=== PATIENT | male | born 1945 | race Caucasian/White ===

== ENCOUNTER 2020-11-06 05:56 | Emergency (ER) | payer OTHER ==
[~2020-11-06] VITALS: Ht 165.1 cm; Wt 79.4 kg
--- NOTE | 2020-11-06 06:10 | NUR ---
PATIENT WAS BIB[place], WAS FOUND WALKING AROUND WITH NO CLOTHES ON, NO WALLET, AND PHONE. ON ASSESSMENT, PATIENT IS CONFUSED, AAO TO SELF ONLY, BREATHING EVEN AND UNLABORED, SATURATION 99% ON ROOM AIR. PT WAS SEEN AND EXAMINED BY DR CALVERT. PT ATTACHED TO MONITOR AND PULSE OX. WILL CONTINUE TO MONITOR AND CARRY OUT MD ORDERS.
--- NOTE | 2020-11-06 06:35 | NUR ---
PATIENT TAKEN TO RADIOLOGY FOR CT OF HEAD
--- NOTE | 2020-11-06 06:39 | NUR ---
PATIENT BACK TO ED BED 11
--- NOTE | 2020-11-06 07:00 | NUR ---
DR CALVERT ON THE OPHONE W/ DR ELI
[2020-11-06 07:13] LABS: BASOPHILS % (AUTO) 0.7 % (0.0-2.0); EOSINOPHILS % (AUTO) 0.5 % (0.0-6.0); HEMATOCRIT 34 % (39-51); HEMOGLOBIN 11.5 g/dL (13.5-17.5); LYMPHOCYTES # (AUTO) 0.6 K/uL (0.8-4.8); LYMPHOCYTES % (AUTO) 10.5 % (20.0-44.0); MEAN CORPUSCULAR HGB CONC 34 g/dl (31.0-36.0); MEAN CORPUSCULAR VOLUME 89 fL (80-96); MONOCYTES # (AUTO) 0.5 K/uL (0.1-1.30); MONOCYTES % (AUTO) 8.2 % (2.0-12.0); NEUTROPHILS # (AUTO) 4.9 K/uL (1.8-8.9); NEUTROPHILS % (AUTO) 80.1 % (43.0-81.0); PLATELET COUNT (AUTO) 208 K/uL (150-450); RED BLOOD CELL COUNT(AUTO) 3.77 MIL/uL (4.5-6.0); WHITE BLOOD COUNT (AUTO) 6.1 K/uL (4.3-11.0)
--- NOTE | 2020-11-06 07:16 | NUR ---
CALLED [facility]. AWAITING FOR DR DAVIS'S CALL BACK.
[2020-11-06] MEDS ORDERED: LEVETIRACETAM (500MG) 500 MG/5 ML VIAL IV ONE (07:21)
[2020-11-06] MEDS ORDERED: DEXAMETHASONE SOD PHOSPHATE 10 MG/ML VIAL IV ONE (07:30)
[2020-11-06] MEDS ORDERED: LEVETIRACETAM (500MG) 1,000 MG in IV NS 0.9% 100 ML IV ONE (07:30)
[2020-11-06] MEDS ORDERED: IV NS 0.9% 1,000 ML IV ONE (07:30)
--- NOTE | 2020-11-06 07:30 | NUR ---
ADDENDUM: Intravenous End Time Documentation: Normal saline 1 liter (IV-WO) : start time:0730 am ; end time:0830 am : IV site: [facility] # 20 ' Port # 1
[2020-11-06] MEDS ORDERED: DEXAMETHASONE SOD PHOSPHATE 10 MG/ML VIAL ONE (07:33)
--- NOTE | 2020-11-06 07:34 | NUR ---
DR. DAVIS FROM [facility] SPEAKING WITH DR. CALVERT
[2020-11-06 07:36] LABS: CALCIUM, SERUM 8.9 mg/dL (8.5-10.1); CARBON DIOXIDE 29 mmol/L (21-32); CHLORIDE 104 mmol/L (98-107); CREATININE 1.2 mg/dL (0.6-1.3); GLUCOSE 221 mg/dL (74-106); POTASSIUM 3.6 mmol/L (3.5-5.1); SODIUM SERUM 142 mmol/L (136-145); UREA NITROGEN, BLOOD 10 mg/dL (7-18)
[2020-11-06 07:43] LABS: ALANINE AMINOTRANSFERASE 33 U/L (12-78); ALBUMIN 3.7 g/dL (3.4-5.0); ALCOHOL, BLOOD < 3 mg/dL (0-0); ALKALINE PHOSPHATASE 108 U/L (46-116); ASPARTATE AMINOTRANSFERASE 33 U/L (15-37); BILIRUBIN,DIRECT 0.4 mg/dL (0.0-0.2); BILIRUBIN,TOTAL 1.9 mg/dL (0.2-1.0); TOTAL PROTEIN, SERUM 7.1 g/dL (6.4-8.2)
[2020-11-06 07:46] LABS: ACETAMINOPHEN < 10 ug/ml (10-30)
--- NOTE | 2020-11-06 07:48 | NUR ---
PEGGY CALLED FROM [facility] [phone] TRANSFER INFO IS: [facility] ETA 0820 ROOM 1308-1 CALL [phone] X [phone] FOR REPORT.
[2020-11-06 07:53] LABS: SERUM AMMONIA < 10 umol/L (11-32)
--- NOTE | 2020-11-06 08:05 | NUR ---
RECEIVED PATIENT IN ER BED #11. ALERT AND ORIENTED X1. DENIES PAIN. IN ROOM AIR AND DENIES SOB. RESPIRATION REGULAR AND UNLABORED. ATTACHED TO THE MONITOR. WILL CONTINUE TO MONITOR THE PATIENT.
--- NOTE | 2020-11-06 08:10 | NUR ---
REPORT GIVEN TO NURSE ALIS ASHBY FROM [facility]
--- NOTE | 2020-11-06 08:30 | NUR ---
Son Arthur called [phone], [phone]. Updated with plan of care and transfer. Pt Provided courtesy a phone to face time w/son
[2020-11-06 08:51] VITALS: BP 118/62
--- NOTE | 2020-11-06 08:52 | NUR ---
DR CALVERT ON THE PHONE WITH DR ELI.
--- NOTE | 2020-11-06 08:55 | NUR ---
DR ELI MADE AWARE OF TROPONIN LEVEL OF 1.242
--- NOTE | 2020-11-06 09:01 | NUR ---
REPORT GIVEN TO AMBULANCE PERSONEL
--- NOTE | 2020-11-06 09:10 | NUR ---
THE PATIENT IS TRANSFERED TO [facility] VIA [facility]
== END 2020-11-06 09:11 | disposition short-term general hospital (02) ==
LOC: ER 06:02
DX: G93.9 Disorder of brain, unspecified (principal); R41.82 Altered mental status, unspecified; I21.4 Non-ST elevation (NSTEMI) myocardial infarction; S06.309A Unspecified focal traumatic brain injury with loss of consciousness of unspecified duration, initial encounter; W18.30XA Fall on same level, unspecified, initial encounter; Y92.89 Other specified places as the place of occurrence of the external cause; I95.9 Hypotension, unspecified; D64.9 Anemia, unspecified; R94.6 Abnormal results of thyroid function studies; E78.5 Hyperlipidemia, unspecified; Z95.2 Presence of prosthetic heart valve; I10 Essential (primary) hypertension; Z20.822 Contact with and (suspected) exposure to COVID-19; I44.0 Atrioventricular block, first degree; E11.9 Type 2 diabetes mellitus without complications
CPT/HCPCS: 36415; 70450; 71045; 80048; 80076; 80143; 80320; 82140; 83605; 84443; 84484; 85025; 85730; 86850; 87040 ×2; 87081; 87426; 93005; 96360; 96365; 96375; 99291; C9803; J1100; J1953; J7030 ×2; G0480